=== PATIENT | female | born 1980 | race Caucasian/White ===

== ENCOUNTER 2017-03-15 13:44 | Day surgery (SDC) | payer OTHER ==
[~2017-03-15] VITALS: Ht 154.9 cm; Wt 52.6 kg
[~2017-03-15 13:44] MED LIST: BUPIVAC MPF-EPI 0.5%-1:200000 30 ML VIAL. ONE; GLUCAGON,HUMAN RECOMBINANT 1 MG/ML VIAL. ONE; HYDROmorphone 2 MG/ML VIAL IV PRN; IOHEXOL 300 MG/ML 100ML VIAL. ONE; IV RINGERS,LACTATED 1000ML 1,000 ML IV SCH; LIDOCAINE 1% PF 2 ML VIAL. ID PRN; MORPHINE SULFATE 2 MG/ML DISP.SYRIN. IV PRN; ONDANSETRON PF 4 MG/2 ML VIAL. IV PRN; PROCHLORPERAZINE 10 MG/2 ML VIAL. IV PRN; SURGICEL HEMOSTAT 4X8 EACH. ONE; ceFAZolin 2GM PREMIX 2 GM/50 ML BAG IV ONE; fentaNYL PF VIAL 100 MCG/2 ML VIAL IV PRN
[2017-03-15] MEDS ORDERED: SEVOFLURANE 61 TO 120 MINUTES. IH ONE (13:59)
[2017-03-15] MEDS ORDERED: LIDOCAINE 2% PF Vial for OR 5 ML VIAL. ONE (14:00)
[2017-03-15] MEDS ORDERED: ONDANSETRON PF 4 MG/2 ML VIAL. ONE (14:00)
[2017-03-15] MEDS ORDERED: DEXAMETHASONE SOD PHOS 20 MG/5 ML VIAL. ONE (14:00)
[2017-03-15] MEDS ORDERED: GLYCOPYRROLATE 1 MG/5 ML VIAL. ONE (14:00)
[2017-03-15] MEDS ORDERED: ROCURONIUM 50 MG/5 ML VIAL. ONE (14:00)
[2017-03-15] MEDS ORDERED: KETOROLAC 30 MG/ML INJ FOR OR. INJ ONE ×2 (14:00→16:04)
[2017-03-15] MEDS ORDERED: PROPOFOL 20 ML IV ONE (14:00)
[2017-03-15] MEDS ORDERED: MIDAZOLAM HCL/PF 2 MG/2 ML VIAL. ONE (14:00)
[2017-03-15] MEDS ORDERED: fentaNYL PF VIAL 100 MCG/2 ML VIAL ONE ×2 (14:00→15:58)
[2017-03-15] MEDS ORDERED: NEOSTIGMINE METHYLSULFATE 5 MG/5 ML SYRINGE. ONE (14:00)
[2017-03-15 15:38] LABS: NEG OBC UR NEG; POS OBC UR POS
[2017-03-15] MEDS ORDERED: FAMOTIDINE 20 MG/2 ML VIAL ONE (16:00)
[2017-03-15] MEDS ORDERED: SEVOFLURANE 16 TO 30 MINUTES. IH ONE (16:45)
[2017-03-15] MEDS ORDERED: SEVOFLURANE 31 TO 60 MINUTES. IH ONE (16:45)
--- NOTE | 2017-03-15 16:55 | RAD ---
Intraoperative cholangiogram 03/15/2017 Clinical history: Laparoscopic cholecystectomy. An intraoperative cholangiogram was performed. 3 digital spot radiographs of the right upper quadrant of the abdomen were obtained. The total fluoroscopic time is listed as 0.10 minutes. These images demonstrate contrast opacifying the cystic duct remnant, common hepatic duct and the left and right hepatic ducts and the branches and the common bile duct. Free spillage of contrast into the duodenum is noted. No filling defect is seen. Impression: Negative study.
[2017-03-15] MEDS ORDERED: MEPERIDINE PF 25 MG/ML VIAL. IV PRN (17:00)
[2017-03-15] MEDS ORDERED: MEPERIDINE PF 25 MG/ML VIAL. ONE (17:02)
--- NOTE | 2017-03-15 17:38 | DISCH ---
DISCHARGE INSTRUCTIONS Condition on Discharge Condition on Discharge: Stable Activity After Discharge Activity Instructions for Disc: Activity as tolerated, Avoid exertion Driving Instructions after Dis: Do not drive (3-4 days) Diet after Discharge Diet after Discharge: Regular Wound Incision Care Wound/Incision Care: Ice to area for comfort Follow-Up Follow up with: Ryne next week CARLYLE GUTIERREZ MD Mar 15, 2017 17:38
--- NOTE | 2017-03-15 17:40 | PDOC ---
BRIEF OPERATIVE NOTE Date: Mar 15, 2017 Pre-Op Diagnosis sx cholelithiasis Post-Op Diagnosis same Procedure Performed l/s wendy with albert Surgeon Ryne Clock And Watch Assembler Katherine BRIONES Anesthesia Type: General Blood Loss 20cc IV Fluid 1100cc Specimens Obtained GB Findings supple GB, normal grams Complications none Operative Note Wk # [id number] CARLYLE GUTIERREZ MD Mar 15, 2017 17:40
[2017-03-15] MEDS ORDERED: HYDROcodone/APAP 5/325MG 1 TAB TABLET PO PRN (18:00)
[2017-03-15 18:13] VITALS: BP 130/73
--- NOTE | 2017-03-15 18:53 | OP ---
DATE OF SURGERY: 03/15/2017 PREOPERATIVE DIAGNOSIS: Symptomatic cholelithiasis. POSTOPERATIVE DIAGNOSIS: Symptomatic cholelithiasis. PROCEDURE: Laparoscopic cholecystectomy with cholangiogram. SURGEON: Carlyle Gutierrez MD ANESTHESIA: General endotracheal. ESTIMATED BLOOD LOSS: 10 mL. INTRAVENOUS FLUID: 1100 mL. INDICATIONS: The patient is a 37-year-old with right upper quadrant postprandial pain. Ultrasound showing stones. She is brought for cholecystectomy. OPERATIVE FINDINGS: The liver was smooth and sharp. The gallbladder was supple. Cholangiograms were normal. Visual inspection of the remainder of the abdomen failed to reveal obvious abnormalities. DESCRIPTION OF PROCEDURE: The patient brought to the operating suite, given a general endotracheal anesthetic and the abdomen prepped and draped in usual sterile fashion. An infraumbilical incision was infiltrated with 0.5% Marcaine with epinephrine, incised and a 5 mm Visiport used to gain access into the abdominal cavity, taking care to avoid injury to abdominal contents. Pneumoperitoneum to 12 cm of water was established. Inspection carried out with results as noted above. With the table in reverse Trendelenburg rolled to the left, the epigastric port was placed under direct vision. The midclavicular and lateral port locations were used for "alligator" graspers and we retracted the gallbladder superolaterally. The cystic duct and cystic artery were visualized. The duct was clipped on the gallbladder side. Cholangiograms were made. These were normal. In light of this, the catheter was removed. The cystic duct was clipped x 3 and divided, taking care to avoid injury or compromise of the common duct. The cystic artery was clipped x 2 divided and the gallbladder freed from the bed and placed in an EndoCatch bag. Good hemostasis was present. Table returned to level. Intra-abdominal pressure decreased to 6 cm of water. No bleeding from either of the alligator grasper sites after their removal. Epigastric port closed with interrupted 0 Vicryl suture. Abdomen decompressed after confirming good hemostasis. Skin incision was closed with subcuticular 4-0 Monocryl. Steri-Strips and sterile dressings applied. The patient awakened from her anesthetic and taken to the recovery room in satisfactory condition. CARLYLE GUTIERREZ MD DR: LULU/kayode JOB#: [id number] / [id number]
== END 2017-03-15 18:43 | disposition home or self-care (01) ==
LOC: SURG 13:44
PROVIDERS: ATTEND Surgery
DX: K80.20 Calculus of gallbladder without cholecystitis without obstruction (principal); K21.9 Gastro-esophageal reflux disease without esophagitis; Z98.51 Tubal ligation status; Z87.39 Personal history of other diseases of the musculoskeletal system and connective tissue; Z72.0 Tobacco use
CPT/HCPCS: 47563; 74300; 81025; J0690; J1100; J1885; J2175; J2250; J2405; J2704; J2710; J3010; J3490; J7030; J7120; Q9967; S0028; J1610; J2001

== ENCOUNTER → 2017-11-05 | Outpatient (CLI) | payer OTHER ==
--- NOTE | 2017-11-06 10:42 | KCIC ---
MR of the left knee Indication: Left knee pain. Chronic pain. Pain with running. Technique: The standard multiplanar sequences are obtained. Findings: Artifact: No significant image degradation. Medial meniscus:Intact. Lateral meniscus: Intact. Anterior cruciate ligament: Intact Posterior cruciate ligament: Intact Medial collateral ligament: Intact. Lateral structures: * Iliotibial band: Intact. * Lateral collateral ligament: Intact. * Biceps femoris tendon: Intact * Popliteus tendon attachment: Intact Extensive mechanism: * Patellar tendon: Intact * Quadriceps tendon: Intact * Retinacular structures: Intact Fluid: No significant joint effusion. No significant Worley's cyst. Intra-articular bodies: None visualized Joint compartments -patellofemoral joint:Intact -medial compartment:Intact -lateral compartment:Intact Bones: No significant lesion or acute fracture. Soft tissue: Unremarkable Impression: No evidence of acute abnormality or internal derangement. Electronically signed by: Johnny Jimenez MD (11/06/2017 10:38 AM) [id number]
== END | disposition home or self-care (01) ==
LOC: KCIC MRI 15:56
PROVIDERS: ATTEND Family Medicine
DX: M25.562 Pain in left knee (principal); K21.9 Gastro-esophageal reflux disease without esophagitis; Z87.891 Personal history of nicotine dependence
CPT/HCPCS: 73721

== ENCOUNTER → 2020-05-21 | Outpatient (CLI) | payer OTHER ==
--- NOTE | 2020-05-21 09:39 | RAD ---
EXAM: MRI right foot, without IV contrast DATE: 05/21/2020 8:05 AM CLINICAL HISTORY: Reason: right foot pain. great toe pain COMPARISON: None available. TECHNIQUE: Multiplanar, multisequence MR imaging of the right foot was performed without IV contrast. FINDINGS: Hallux MTP joint degenerative changes are seen with chondral thinning laterally with trace subchondra l edema. Flattening of the lateral aspect of the first metatarsal head may represent prior fracture a lthough chronic degenerative changes may also result in this appearance. Midfoot degenerative changes are seen, especially at the and TMT joint. Trace fluid between the first and second metatarsal heads likely intermetatarsal bursitis. Small hallux MTP joint effusion. Lisfranc ligament is intact. Visualized flexor and extensor tendons are preserved without tenosynovitis.. Grossly normal muscle signal and bulk. No fatty atrophy. IMPRESSION: 1. Hallux MTP joint effusion with associated degenerative changes including subchondral edema. Mild flattening of the hallux metatarsal head may be posttraumatic. 2. Trace fluid between the first and second metatarsal heads likely intermetatarsal bursitis. Electronically signed by: Siddharth Ladd MD (05/21/2020 9:37 AM) [id number]
== END ==
LOC: MRI 09:32
PROVIDERS: ATTEND Family Medicine
DX: M19.071 Primary osteoarthritis, right ankle and foot (principal); M25.474 Effusion, right foot
CPT/HCPCS: 73718

== ENCOUNTER → 2020-06-25 | Outpatient (CLI) | payer OTHER ==
[~2020-06-25] MED LIST changes: -BUPIVAC MPF-EPI 0.5%-1:200000 30 ML VIAL. ONE; +GADOTERATE 5 MMOL/10ML VIAL. INT ART ONE; -GLUCAGON,HUMAN RECOMBINANT 1 MG/ML VIAL. ONE; -HYDROmorphone 2 MG/ML VIAL IV PRN; -IOHEXOL 300 MG/ML 100ML VIAL. ONE; +IOHEXOL 300 MG/ML 50 ML VIAL. INT ART ONE; -IV RINGERS,LACTATED 1000ML 1,000 ML IV SCH; +LIDOCAINE 1% Multi-Dose 20 ML VIAL. ID ONE; -LIDOCAINE 1% PF 2 ML VIAL. ID PRN; -MORPHINE SULFATE 2 MG/ML DISP.SYRIN. IV PRN; -ONDANSETRON PF 4 MG/2 ML VIAL. IV PRN; -PROCHLORPERAZINE 10 MG/2 ML VIAL. IV PRN; -SURGICEL HEMOSTAT 4X8 EACH. ONE; -ceFAZolin 2GM PREMIX 2 GM/50 ML BAG IV ONE; -fentaNYL PF VIAL 100 MCG/2 ML VIAL IV PRN
--- NOTE | 2020-06-25 16:13 | KCIC ---
Fluoroscopically guided injection of the left shoulder to facilitate a MR arthrogram 06/25/2020 Clinical history: Chronic left shoulder pain. Technique: After the risks and benefits of the procedure were explained to the patient, written infor med consent was obtained. The anterior skin surface of the left shoulder was prepped and draped in st erile fashion. 1% lidocaine was used as local anesthetic. Under fluoroscopic guidance, a 22-gauge spi nal needle was advanced into the anterior aspect of the left glenohumeral joint. Following this 12 cc of a solution containing 5 cc of 0.1% lidocaine, 5 cc of Omnipaque 300, 10 cc of normal saline and 0 .1 cc of CLARISCAN were injected into the left glenohumeral joint. Following this the needle was tk tierra and hemostasis achieved at the puncture site. A sterile bandage was placed on the skin puncture s ite. The patient tolerated the procedure well and there were no immediate complications. The patient was taken to MRI for further imaging evaluation. The total fluoroscopic time for this study was 18 se conds. 1 digital fluoroscopic captured AP radiograph of the left shoulder was obtained. Impression: Technically successful injection of the left shoulder joint under fluoroscopy to facilita te a MR arthrogram as outlined above. Electronically signed by: José Manuel Tan MD (06/25/2020 4:11 PM) [id number]
--- NOTE | 2020-06-25 16:20 | KCIC ---
Examination: MR arthrogram left shoulder HISTORY: History of chronic left shoulder pain COMPARISON: None TECHNIQUE: Multiplanar, multisequence MR imaging of the left shoulder after arthrogram injection. FINDINGS: The long head of the biceps tendon within the bicipital groove. The attachment of the long head the b iceps tendon to the superior labral anchor grossly appears intact. The attachment of the subscapulari s tendon, supraspinatus, infraspinatus tendon grossly appears intact. Mild increased signal identifie d in the supraspinatus, infraspinatus tendon. There is increased T2 signal identified in the superior labrum likely small tear. The muscle bulk grossly appears unremarkable. The acromion is type II. The visualized labrum grossly appears unremarkable. IMPRESSION: 1. Tear of the superior labrum. 2. Mild tendinosis of the rotator cuff. Electronically signed by: Karsten Blanca MD (06/25/2020 4:18 PM) [id number]
== END | disposition home or self-care (01) ==
LOC: KCIC 13:23
PROVIDERS: ATTEND Family Medicine
DX: M25.512 Pain in left shoulder (principal); M25.562 Pain in left knee; M24.812 Other specific joint derangements of left shoulder, not elsewhere classified; K21.9 Gastro-esophageal reflux disease without esophagitis; Z98.51 Tubal ligation status; Z98.890 Other specified postprocedural states; Z79.899 Other long term (current) drug therapy; Z72.89 Other problems related to lifestyle
CPT/HCPCS: 23350; 73222; 77002; A9575; J3490; Q9967; 73040

== ENCOUNTER → 2021-02-10 | Outpatient (CLI) | payer OTHER ==
--- NOTE | 2021-02-10 17:00 | KCIC ---
STUDY: MRI of the right knee without contrast INDICATION: Right knee pain. COMPARISON: Right knee radiographs 02/06/2021 TECHNIQUE: Multiplanar MR imaging of the right knee performed without the use of intravenous or intra -articular contrast. FINDINGS: Menisci: Complex, multidirectional tear of the medial meniscus centered at the posterior horn/root ju nction. The posterior portion of the medial meniscal body extends approximately 2 mm outward from the joint line but is not overtly extruded to indicate that the posterior horn tear has a full-thickness radial component. Complex tear of the lateral meniscus as well mainly along the body segment and pos terior horn with flipped/displaced meniscal tissue seen along a portion of the body segment, referenc e images 13 and 14 series 8 and image 20 series 6. Cruciate ligaments: Fully ruptured ACL. The PCL is intact. Collateral ligaments: Grade 1/2 fibular collateral ligament sprain/partial tear. Mild edema along the additional posterolateral corner structures as well as along the lateral retinaculum without evidenc e for a full-thickness ligament tear. The medial collateral ligaments are intact as are the MPFL and medial retinaculum. Tendons: Intact extensor mechanism. Intact popliteus and biceps femoris. Heterogeneous signal at the semimembranosus insertion favored reactive to an adjacent fracture and there is no high-grade tendon tear. Reactive edema/ill-defined hemorrhage along the pes anserine tendons. Mild edema at the proxima l soleus. Cartilage: Patellofemoral: Intact. Lateral compartment: Marrow contusion at the posterior lip of the lateral tibial plateau and what courtney ears to be minimal impaction without a traumatic chondral defect. Medial compartment: Osteochondral fracture at the posterior lip of the medial tibial plateau with min imal depression, image 10 series 5, and no displacement. The fracture measures approximately 1.7 cm t ransverse on image 9 series 8 and approximately 1 cm AP on image 10 series 5. Bones: Marrow contusion/osteochondral fracture at the posterior aspect of the tibia as described abov e. The distal femur is intact as is the proximal fibula. Normal TT-TG distance. Miscellaneous: Small joint effusion. Small Worley's cyst with subjacent edema extending downward into the calf. Ill-defined popliteal fossa edema/hemorrhage and similar signal superficial to the retinacu la and mildly superficial to the patella. No large localized hematoma. Edema of Hoffa's fat. IMPRESSION: 1. Fully ruptured ACL. Intact PCL. 2. Complex tear of the lateral meniscus extending from the anterior body/horn junction, along the pia dy segment and into the posterior horn with a flipped and displaced meniscal fragment along a portion of the body (see presley images). 3. Complex tear of the medial meniscus centered at the posterior horn/root junction (image 11 series 6) but without displaced meniscal tissue. 4. Grade 1/2 sprain/low-grade partial tear of the fibular collateral ligament. Edema along other pos terolateral corner structures without a full-thickness ligament tear. The biceps femoris is intact. M uscular strain at the soleal origin. 5. Osteochondral impaction fracture at the posterior lip of the medial tibial plateau with minimal d epression and no displacement. The fracture extends to the cartilage but no displaced chondral fragme nt is seen. Marrow contusion at the posterior lip of the lateral tibial plateau with minimal impactio n but no apparent involvement of the cartilage. 6. Small Worley's cyst with surrounding edema/hemorrhage extending downward into the calf. Additional ill-defined edema/hemorrhage around the knee relating to recent trauma without a large hematoma. Sma ll joint effusion. Electronically signed by: ERIC ARNETT MD (02/10/2021 4:57 PM) [id number]
== END ==
LOC: KCIC MRI 14:56
PROVIDERS: ATTEND Family Medicine
DX: S83.271A Complex tear of lateral meniscus, current injury, right knee, initial encounter (principal); S83.231A Complex tear of medial meniscus, current injury, right knee, initial encounter; S83.512A Sprain of anterior cruciate ligament of left knee, initial encounter; S00.531A Contusion of lip, initial encounter; M25.461 Effusion, right knee; M71.21 Synovial cyst of popliteal space [Baker], right knee; X58.XXXA Exposure to other specified factors, initial encounter; Y93.89 Activity, other specified; Y92.89 Other specified places as the place of occurrence of the external cause; Y99.8 Other external cause status
CPT/HCPCS: 73721